=== PATIENT | male | born 2005 | race Caucasian/White ===

== ENCOUNTER 2023-11-14 16:16 | Day surgery (SDC) | payer MEDICAID, SELFPAY ==
[2023-11-14] VITALS (12 sets, daily range): BP systolic 94–148; BP diastolic 36–83; PULSE 72–101; RESP 16–20; TEMP 36.8–37.7; O2SAT 76–100; BMI 23.0
[2023-11-14] MEDS: Lactated Ringers 1,000 ML 15 ML IV ×2 (17:05→19:15)
--- NOTE | 2023-11-14 18:20 | PCM.OPRPT ---
Problems Associated Problem List Diagnoses (1) Post-tonsillectomy hemorrhage: Report of Operation Date of Procedure: 11/14/23 Pre-Operative Diagnosis: post tonsillectomy hemorrhage Post-Operative Diagnosis: post tonsillectomy hemorrhage Surgery/Procedure Performed:: operative cauterization of post tonsillectomy hemorrhage Surgeon: Beau Aparicio Type of Anesthesia: General Description of Procedure: on the day of the procedure, after appropriate informed consent was obtained, the patient was brought to the operating room and placed in supine position on the operating table. he was placed under general endotracheal anesthesia by the anesthesiologist. the endotracheal tube was secured, the eyes were taped. the table was rotated 90 degrees toward the surgeon. a patrice frederick was inserted and suspended. a large right tonsillar fossa clot was suctioned and a large arterial bleed was cauterized mid-pole. there was considerable fibrinous exudates bilaterally. the entirety of the right fossa was cauterized. the left was cauterized focally. several valsalva maneuvers were held and hemostasis was observed. an orogastric tube was placed and contents were evacuated. he was extubated uneventfully and transferred to the PACU in stable condition.
--- NOTE | 2023-11-14 18:42 | DCINST_ITS ---
Discharge Instructions Diet Discharge Diet: Light diet - advance as tolerated Dressing / Incision Call your doctor if your incision/area has: Sudden Increased Bleeding Follow Up Care Please Follow Up With: Beau Aparicio MD When: call with an update [phone] Test Results: Test results from this visit will be discussed in further detail at your follow- up appointment, if applicable. Discharge Plan Admission Attending Provider: Provider,Ed Physician Disposition Disposition (needs filled in before D/C Order can be placed): Home, Self Care
== END 2023-11-14 19:02 | disposition home or self-care (01) ==
LOC: ED 05-28 09:48
PROVIDERS: PCP Family Medicine; Visit Provider Otolaryngology
PROC: (CPT 42962; principal; 2023-11-14 17:35)
DX: K91.841 Postprocedural hemorrhage of a digestive system organ or structure following other procedure (principal)
CPT/HCPCS: 42962; 00170; J7120; J2405

== ENCOUNTER 2023-11-15 22:11 | Emergency (ER) | payer OTHER, SELFPAY ==
[2023-11-15 22:13] VITALS: BP 117/65; PULSE 61; RESP 18; TEMP 36.1; O2SAT 99; BMI 24.0
[2023-11-16 00:19] VITALS: BP 136/74; PULSE 67; RESP 16; O2SAT 98
--- NOTE | 2023-11-16 01:03 | EX.ED.DYSGE1 ---
HPI History of Present Illness Chief Complaint: Other, Pain/Inj Informant: patient Narrative Narrative: Patient is a 17-year-old male who is 1 week post tonsillectomy performed at [facility] surgery center presenting with bleeding from his throat. Patient said continuous postoperative pain but states it is managed with his Percocet. He is also been taking Tylenol intermittently. Has been drinking plenty of fluids. States he is drinking up to a gallon of water a day. Is also eating some yogurt and soft foods. Tonight after taking some ibuprofen he coughed up a small amount of blood and was concerned about postoperative bleeding. He came in for further evaluation. Of note patient was seen 2 nights ago in the OR with Dr. Lemons for postoperative bleeding that was cauterized. PFSH PFS Medical History Hemorrhage following tonsillectomy Home Medications oxycodone-acetaminophen 5 mg-325 mg tablet (Percocet) 1 tab PO Q6H PRN pain 11/15/23 [History Last Taken Unknown] Allergy/AdvReac Type Severity Reaction Status Date / Time Fish Containing Products Allergy Intermediate Swelling Verified 11/15/23 22:12 Surgical History Hx of tonsillectomy Social History Smoking Status: Never smoker ROS ROS ED Constitutional Constitutional ED: Denies chills or fever(s) ENT ENT ED: Reports sore throat and other Details: bleeding from throat Respiratory/Chest Respiratory/Chest: Denies cough Gastrointestinal Gastrointestinal: Denies nausea or vomiting Musculoskeletal Musculoskeletal: Denies arthralgias or myalgias Integumentary Denies rash Neurologic Neurologic: Denies headache(s) Hematologic/Lymphatic Hematologic/Lymphatic: Denies easy bleeding or easy bruising EXAM Physical Exam Const Vital Signs: 11/15/23 22:13 11/16/23 00:11 11/16/23 00:19 Temperature 96.9 F L Temperature Source Temporal Pulse Rate 61 67 Respiratory Rate 18 16 Respiratory Effort Normal Non-Labored Respiratory Pattern Normal Blood Pressure 117/65 136/74 H Blood Pressure Mean 82 94 Pulse Ox 99 98 Oxygen Delivery Method Room Air Positive well nourished and well developed General Appearance ED: well developed and NAD HEENT Reports moist mucous membranes HEENT Narrative: Moist mucosal membranes. Eschar noted to the oropharynx consistent with his recent postoperative status. No active bleeding appreciated. Neck No supple Chest Wall inspection of chest normal and palpation of chest normal Resp normal respiratory effort Cardio regular rate and regular rhythm GI normal to inspection, nondistended, normoactive bowel sounds Neuro oriented x3 Sensorium / Orientation: alert Psych mental status grossly normal Skin no rashes or lesions noted and no wounds MDM MDM MDM Narrative Medical decision making narrative: Patient evaluated for concern of postoperative bleeding. Did have postoperative bleeding 2 days ago that required repeat surgery. Patient does not have any active bleed in the ER and is hemodynamically stable. Was evaluated by ENT on-call, Dr. Iain Brasher, who does not appreciate any bleeding at this time. Suspect possibly a small scab came off and that is what causes bleeding. I did discuss that patient should add some electrolytes to his diet such as Gatorade or Pedialyte to prevent free water toxicity as he is not taking much in. Discussed avoiding NSAIDs per recommendation of ENT given his recent postoperative bleeding. Discussed transitioning from Percocet to Tylenol over the next few days for pain control. Patient has adequate pain control at this time will be discharged home. Will follow-up outpatient with ENT in the next week or 2. Given return precautions. Patient and father agreeable to plan of care. Patient discharged home in stable condition. Discharge Plan Triage Chief Complaint: Other, Pain/Inj ED Provider: Scarlet Bartholomew Dx/Rx/DC Orders Clinical Impression: Encounter for post surgical wound check Instructions: ED Tonsillectomy, Post-Op Bleeding Prescriptions: No Action oxycodone-acetaminophen [Percocet] 5-325 mg tablet 1 tab PO Q6H PRN (Reason: pain) Primary Care Provider: Care Physician,No Primary Referrals: Beau Aparicio MD [Med Staff - Active Staff] - 1-2 Weeks NOT,DEFINED [Non-Staff] - Activity Restrictions/Additional Instructions: You do not appear to have any significant bleeding at this time. It safe for you to go home. Do not take ibuprofen or other anti-inflammatory such as Aleve or Advil while your throat is healing. You may start to transition to 1 Percocet and 1 regular strength Tylenol or just take 2 regular strength Tylenol at a time for pain control. Please add in some electrolytes such as Gatorade or Pedialyte for your fluids. Continue to adhere to a liquid/soft diet for the time being as your throat continues to heal. Disposition Disposition: Home, Self Care Discharge Date/Time: 11/16/23 01:25
--- NOTE | 2023-11-16 01:07 | PCM.PN.BLA ---
Progress Note 17 yo white male POD #7 s/p tonsillectomy. He was taken back to the OR last night for post operative hemorrhage. He called this evening stating he was bleeding again. The mother could not appreciate any fresh blood in his mouth with a flashlight when I was on the phone with her. I had him gargle at home and spit, this did not reveal any blood, but he insisted that he tasted blood. At this point, I instructed him to go to the ER. He has been taking ibuprophen and percocet. PE: awake alert NAD M/op- normal post operative changes with expected fibrinous exudate. No evidence of active bleeding, blood staining, or jelly clot in either tonsillar fossa. A: s/p tonsillectomy. no evidence of bleeding at this time P: I would like him to stop ibuprophen. He should transition to tylenol only. He will continue with adequate hydration and a soft diet. Follow up in 1-2 weeks.
--- OUTSIDE RECORDS SUMMARY | 2023-11-16 01:20 | XMS RPT_ITS | CCD ---
Author Name Unknown Address [address] [place] [address] Organization [facility] Care Team Providers Care Tool Engineer Name Role Phone ABAD GOODWIN Unavailable Unavailable NO PRIMARY CARE, Unavailable Unavailable ABAD GOODWIN Unavailable Unavailable ABAD GOODWIN Unavailable Unavailable FAWN SHETTY Unavailable Unavailable SINGH DOMINGUEZ V. Unavailable Unavailable JEREMY DUPREE Unavailable Unavailable Results Test Name Value Interpretation Reference Range Facil ity Encounters Encounter Date Encounter Type Care Provider Facility Start: 08-03-2017 End: 08-03-2017 Evaluation and management of inpatient ABAD GOODWIN [facility] Payers Date Payer Category Payer Policy ID Unknown [id number] Summary Purpose Family History No Family History Records Found Advance Directives No Advanced Directives Records Found Additional Source Comments (unrecognized sect ion and content) No Status Records Found INFORMATION SOURCE (unrecogn ized section and content) FOR RECORDS PERTAINING TO PATIENTS WHO ARE OR HAVE BEEN ENROLLED IN A CHEMICAL DEPENDENCY/SUBSTANCEABUSE PROGRAM, SOME INFORMATION MAY BE OMITTED. This clinical summary was aggregated from multiple sources. Caution should be exercised in using it in the provision of clinical care. This summary normalizes information from multiple sources, and as a consequence, information in this document may materially change the coding, format and clinical context of patient data. In addition, data may be omitted in some cases. CLINICAL DECISIONS SHOULD BE BASED ON THE PRIMARY CLINICAL RECORDS. [employer] [facility]. provides no warranty or guarantee of the accuracy or completeness of information in this document.
== END 2023-11-16 01:25 | disposition home or self-care (01) ==
LOC: ED 11-16 01:18
PROVIDERS: Emergency Provider Emergency Medicine; Visit Provider Emergency Medicine
DX: Z51.89 Encounter for other specified aftercare (principal)
CPT/HCPCS: 99283

== ENCOUNTER 2023-11-16 11:25 | Day surgery (SDC) | payer SELFPAY ==
[2023-11-16] VITALS (8 sets, daily range): BP systolic 120–139; BP diastolic 76–88; PULSE 68–95; RESP 12–18; TEMP 36.9–37.8; O2SAT 95–98; BMI 22.6
--- NOTE | 2023-11-16 12:35 | EX.ED.DYSGE1 ---
HPI History of Present Illness Chief Complaint: Other, Pain/Inj Informant: patient Narrative Narrative: 17-year-old male presenting to the emergency room with a chief complaint of bleeding from tonsils. Patient underwent a tonsillectomy with Dr. Ray last Tuesday. He had bleeding and underwent cauterization on Tuesday. The patient now notes bleeding from the left tonsil and states that there is a clot. He states he has been having a lot of pain. They called the office and was sent to emergency. [facility] Medical History Hemorrhage following tonsillectomy Home Medications oxycodone-acetaminophen 5 mg-325 mg tablet (Percocet) 1 tab PO Q6H PRN PAIN 11/15/23 [History Last Taken Unknown] Allergy/AdvReac Type Severity Reaction Status Date / Time Fish Containing Products Allergy Intermediate Swelling Verified 11/16/23 11:26 Surgical History Hx of tonsillectomy Social History Smoking Status: Never smoker ROS ROS ED Constitutional Constitutional ED: Denies chills, fever(s) or weight loss Eyes Eyes: Denies change in vision or diplopia ENT ENT ED: Reports sore throat and other Details: Postop bleeding from tonsils ; Denies ear pain or rhinorrhea Cardiovascular Cardiovascular: Denies chest pain, orthopnea, palpitations or racing heartbeat Respiratory/Chest Respiratory/Chest: Denies cough, dyspnea or orthopnea Gastrointestinal Gastrointestinal: Denies abdominal pain, diarrhea, nausea or vomiting Genitourinary Genitourinary ED: Denies dysuria, hematuria or urinary frequency Musculoskeletal Musculoskeletal: Denies arthralgias or myalgias Integumentary Denies abscess or rash Neurologic Neurologic: Denies headache(s) or weakness Psychiatric Psychiatric: Denies anxiety, depression, suicidal ideation or suicidal thoughts Endocrine Endocrinology: Denies polydipsia, polyphagia or polyuria Allergic/Immunologic Allergic/Immunologic ED: Denies mouth swelling, tongue swelling or urticaria EXAM Physical Exam Const Vital Signs: 11/16/23 11:26 11/16/23 12:44 11/16/23 12:44 Temperature 98.5 F 98.5 F Temperature Source Temporal Temporal Pulse Rate 68 68 Respiratory Rate 18 18 Respiratory Effort Normal Respiratory Pattern Normal Blood Pressure 120/76 120/76 Blood Pressure Mean 90 90 Pulse Ox 98 98 Oxygen Delivery Method Room Air Room Air Positive well nourished and well developed General Appearance ED: well developed HEENT Reports normocephalic, head/scalp atraumatic and moist mucous membranes HEENT Narrative: The right tonsillar bed appears to have a normal postoperative cauterized appearance. There appears to be a fresh clot on the left tonsillar bed. Some uvular swelling. Patient spits occasionally into an emesis bag but is otherwise handling secretions. He is not in any respiratory distress. No stridor heard. Eyes PERRL and EOMs intact bilaterally Neck no lymphadenopathy, supple and no JVD Resp normal respiratory effort and clear to auscultation bilaterally Cardio regular rate, regular rhythm and no murmurs GI normal to inspection, nondistended, normoactive bowel sounds and non-tender Palpation: soft Back/Spine no CVA tenderness and normal ROM Extremity normal to inspection General Extremety ED: Negative for edema General Extremity: Negative for edema Neuro oriented x3 and CN's II-XII intact bilaterally Sensorium / Orientation: alert Motor Exam: strength 5/5 throughout Psych mental status grossly normal Mood & Affect: Negative for depressed or tearful Skin no rashes or lesions noted and no wounds MDM MDM MDM Narrative Medical decision making narrative: Right after I finished my exam Dr. Ray arrived in the emergency department to evaluate the patient. Plan is to take the patient back to the operating room. Discharge Plan Dx/Rx/DC Orders Clinical Impression: Encounter for post surgical wound check, Post-tonsillectomy hemorrhage Disposition Disposition: Acute Care Hospital [facility]
--- NOTE | 2023-11-16 13:14 | SUR.PREOP ---
notified anesthesia pt ate 3 bites mashed potatoes 08
[2023-11-16] MEDS: 0.9% Normal Saline (1000mL) 1,000 ML 15 ML IV (13:19)
--- NOTE | 2023-11-16 13:19 | PCM.OPRPT ---
Problems Associated Problem List Diagnoses (1) Post-tonsillectomy hemorrhage: Report of Operation Date of Procedure: 11/16/23 Pre-Operative Diagnosis: post tonsillectomy hemorrhage Post-Operative Diagnosis: post tonsillectomy hemorrhage Surgery/Procedure Performed:: control post tonsillectomy hemorrhage Surgeon: Beau Aparicio Type of Anesthesia: General Description of Procedure: on the day of the procedure, after appropriate informed consent was obtained, the patient was brought to the operating room and placed in supine position on the operating table. he was placed under general endotracheal anesthesia by the anesthesiologist. the endotracheal tube was secured, the eyes were taped. the table was rotated 90 degrees toward the surgeon. a patrice frederick was inserted and suspended. a large left tonsillar fossa clot was suctioned and a arterial bleed was cauterized mid-pole. the right was re-cauterized with focal bleeds even though it was cauterized 48 hours ago. several valsalva maneuvers were held and hemostasis was observed. an orogastric tube was placed and contents were evacuated. he was extubated uneventfully and transferred to the PACU in stable condition.
--- NOTE | 2023-11-16 13:22 | DCINST_ITS ---
Discharge Instructions Diet Discharge Diet: Light diet - advance as tolerated Dressing / Incision Call your doctor if your incision/area has: Increased Pain/ Swelling Follow Up Care Please Follow Up With: Beau Aparicio MD When: to call in 1 week Test Results: Test results from this visit will be discussed in further detail at your follow- up appointment, if applicable. Discharge Plan Admission Attending Provider: Beau Aparicio Primary Care Provider: Joo Gerber Discharge Orders/Prescriptions Prescriptions: No Action oxycodone-acetaminophen [Percocet] 5-325 mg tablet 1 tab PO Q6H PRN (Reason: PAIN ) Referrals / Follow Up: Joo Gerber MD [Primary Care Provider] - Disposition Disposition (needs filled in before D/C Order can be placed): Home, Self Care
--- OUTSIDE RECORDS SUMMARY | 2023-11-16 13:25 | XMS RPT_ITS | CCD ---
Author Name Unknown Address [address] [place] [address] Organization [facility] Care Team Providers Care Drafting Instructor Name Role Phone ABAD GOODWIN Unavailable Unavailable NO PRIMARY CARE, Unavailable Unavailable ABAD GOODWIN Unavailable Unavailable ABAD GOODWIN Unavailable Unavailable FAWN SHETTY Unavailable Unavailable SINGH DOMINGUEZ V. Unavailable Unavailable JEREMY DUPREE Unavailable Unavailable Results Test Name Value Interpretation Reference Range Facil ity Encounters Encounter Date Encounter Type Care Provider Facility Start: 08-03-2017 End: 08-03-2017 Evaluation and management of inpatient ABAD GOODWIN [facility] Payers Date Payer Category Payer Policy ID [...] BE BASED ON THE PRIMARY CLINICAL RECORDS. [employer] [facility]. provides no warranty or guarantee of the accuracy or completeness of information in this document.
[2023-11-16 15:21] LABS: International Normalized Ratio 1.2; Prothrombin Time (Protime)PT. 14.9 SECONDS (11.7-14.9)
[2023-11-16 15:22] LABS: Partial Thromboplast Time 45.1 Seconds (24.1-36.2)
[2023-11-16 15:54] LABS: Hematocrit 39.8 % (40-54); Hemoglobin 14.1 g/dL (13.0-16.5); Mean Corp Hgb Conc 35.4 g/dL (32-36); Mean Corpuscular Hgb 29.8 pg (27.0-32.0); Mean Corpuscular Volume 84.1 fL (80-94); Mean Platelet Vol. 8.6 fl (6.2-12.0); Platelet Count 261 K/mm3 (150-450); RBC Distribution Width CV 12.2 % (11.6-14.6); RBC Distribution Width SD 36.9 fl (35.1-43.9); Red Blood Count 4.73 M/mm3 (4.6-6.2); White Blood Count 10.9 K/mm3 (4.4-11.0)
[2023-11-16] MEDS: Oxycodone/Apap 5/325 Tablet PO (16:18)
--- NOTE | 2023-12-05 16:27 | PCM.HP.STD ---
HPI - General General Date of Admission: 12/05/23 Date of Service: 12/05/23 Chief Complaint: post tonsillectomy bleeding HPI Narrative KEATON SMITH, is a 18 M who presents POD#7 s/p tonsillectomy for hemorrhage. he was recently cauterized; however, he has developed additional bleeding. [facility] Medical History Hemorrhage following tonsillectomy Home Medications oxycodone-acetaminophen 5 mg-325 mg tablet (Percocet) 1 tab PO Q6H PRN PAIN 11/15/23 [History Last Taken Unknown] Allergy/AdvReac Type Severity Reaction Status Date / Time Fish Containing Products Allergy Intermediate Swelling Verified 11/16/23 11:26 Surgical History Hx of tonsillectomy Social History Smoking Status: Never smoker ROS Constitutional Constitutional: Reports systems reviewed and no addt'l complaints, except as documented Vital Signs Vital Signs Vital Signs: Weight Weight: 75.795 kg Body Mass Index (BMI) 22.6 Physical Exam Const alert and oriented x3 General Appearance: cooperative HEENT normocephalic HEENT Narrative: left tonsillar fossa clot. right with fibrinous exudate. Results Lab / Micro Data 11/16/23 14:50 Assessment & Plan Assessment/Plan (1) Post-tonsillectomy hemorrhage: PLAN: will return to the OR for operative cauterization of his tonsillar fossa
== END 2023-11-16 17:05 | disposition home or self-care (01) ==
LOC: ED 12:57 → SDC 13:04 → ACINP 13:06
PROVIDERS: Emergency Provider Emergency Medicine; PCP Family Medicine; Visit Provider Otolaryngology
DX: J95.830 Postprocedural hemorrhage of a respiratory system organ or structure following a respiratory system procedure (principal)
CPT/HCPCS: 42960; 00170; 85027; 85245; 85610; 85730; 99283; J7030; A4216; J2405